=== PATIENT | male | born 1945 | race Caucasian/White ===

== ENCOUNTER 2016-08-22 01:19 | Emergency (ER) | payer MEDICARE, MEDICAID ==
[~2016-08-22] VITALS: Ht 170.2 cm; Wt 72.6 kg
[~2016-08-22 01:19] MED LIST: ATOR10TA PO; EMTR1TAB6 PO; HYDR1TAB PO; OXYC5CAP3 PO
[2016-08-22] MEDS ORDERED: LIDOCAINE 2% JEL UROJET 10 ML MM ONE ×4 (01:51→04:05)
[2016-08-22] MEDS ORDERED: IV NS 0.9% 1,000 ML BAG IV ONE (02:00)
[2016-08-22 02:17] LABS: BASOPHILS % (AUTO) 0.1 % (0.0-2.0); EOSINOPHILS # (AUTO) 0.1 /CMM (0.0-0.7); HEMATOCRIT 46 % (39-51); HEMOGLOBIN 15.6 g/dL (13.5-17.5); LYMPHOCYTES # (AUTO) 3.6 /CMM (0.8-4.8); LYMPHOCYTES % (AUTO) 35.7 % (20.0-44.0); MEAN CORPUSCULAR HEMOGLOBIN 32 PG (26.0-33.0); MEAN CORPUSCULAR HGB CONC 34 g/dl (31.0-36.0); MEAN CORPUSCULAR VOLUME 94 fL (80-96); MONOCYTES # (AUTO) 0.6 /CMM (0.1-1.30); MONOCYTES % (AUTO) 6.2 % (2.0-12.0); NEUTROPHILS # (AUTO) 5.8 /CMM (1.8-8.9); PLATELET COUNT (AUTO) 195 /CMM (150-450); RDW COEFFICIENT OF VARIATION 12.6 (11.5-15.0); RED BLOOD CELL COUNT(AUTO) 4.94 MIL/uL (4.5-6.0); WHITE BLOOD COUNT (AUTO) 10.2 K/uL (4.3-11.0)
[2016-08-22 02:28] LABS: CALCIUM, SERUM 7.6 mg/dL (8.5-10.1); CARBON DIOXIDE 34 mmol/L (21-32); CHLORIDE 104 mmol/L (98-107); CREATININE 0.8 mg/dL (0.6-1.3); GLUCOSE 113 mg/dL (74-106); POTASSIUM 3.8 mmol/L (3.5-5.1); SODIUM SERUM 142 mmol/L (136-145); UREA NITROGEN, BLOOD 12 mg/dL (7-18)
[2016-08-22 02:35] LABS: ALANINE AMINOTRANSFERASE 31 U/L (12-78); ALBUMIN 3.7 g/dL (3.4-5.0); ALKALINE PHOSPHATASE 111 U/L (46-116); BILIRUBIN,DIRECT 0.1 mg/dL (0.0-0.2); BILIRUBIN,TOTAL 0.4 mg/dL (0.2-1.0); LIPASE 155 U/L (73-393); TOTAL PROTEIN, SERUM 7.8 g/dL (6.4-8.2)
[2016-08-22 02:36] LABS: TROPONIN I < 0.017 ng/mL (0.00-0.056)
[2016-08-22 02:40] LABS: INR 0.96 (0.87-1.13); PROTHROMBIN TIME 10.2 SECS (9.5-12.7)
[2016-08-22] MEDS ORDERED: IV NS 0.9% 1,000 ML ONE (02:49)
[2016-08-22] MEDS ORDERED: IV SET PRIMARY 1 EA INFUS.SET MC ONE (02:49)
[2016-08-22 02:58] LABS: ASPARTATE AMINOTRANSFERASE 27 U/L (15-37)
[2016-08-22] MEDS ORDERED: CEPHALEXIN MONOHYDRATE 500 MG CAPSULE PO ONE ×2 (04:00→04:04)
[2016-08-22 04:15] VITALS: BP 136/93
== END 2016-08-22 04:18 | disposition home or self-care (01) ==
LOC: ER 01:20
DX: N21.0 Calculus in bladder (principal); R31.0 Gross hematuria; R33.9 Retention of urine, unspecified; R10.9 Unspecified abdominal pain; G62.9 Polyneuropathy, unspecified; E03.9 Hypothyroidism, unspecified; Z90.89 Acquired absence of other organs; Z88.1 Allergy status to other antibiotic agents
CPT/HCPCS: 36415; 51702; 72128; 74176; 80048; 80076; 83690; 84484; 85025; 85730; 93005; 96360; 99285; A4606; J3490 ×3; J7030; Z7610

== ENCOUNTER 2016-09-10 14:57 | Emergency (ER) | payer MEDICARE, MEDICAID ==
[~2016-09-10] VITALS: Ht 170.2 cm; Wt 72.6 kg
--- NOTE | 2016-09-10 14:57 | NUR ---
[place] SINCE THIS MORNING, S/P CYSTOSCOPY 09/01/16. GOWNED PT . AWAITING MD ORDER
[2016-09-10] MEDS ORDERED: LIDOCAINE 2% JEL UROJET 10 ML MM ONE ×2 (15:24→15:30)
--- NOTE | 2016-09-10 17:24 | NUR ---
LEFT MESSAGE WITH DR JOSE CLEMENTS'S OFFICE
--- NOTE | 2016-09-10 18:11 | NUR ---
Patient discharged to home in stable condition. Written and verbal after care instructions given. Patient verbalizes understanding of instruction.
[2016-09-10 18:15] VITALS: BP 130/82
== END 2016-09-10 18:39 | disposition home or self-care (01) ==
LOC: ER 14:58
DX: R31.0 Gross hematuria (principal); R33.9 Retention of urine, unspecified; E03.9 Hypothyroidism, unspecified; G62.9 Polyneuropathy, unspecified; Z90.89 Acquired absence of other organs; Z88.8 Allergy status to other drugs, medicaments and biological substances
CPT/HCPCS: 51702; 99284; A4217 ×3; A4606; J3490; Z7610

== ENCOUNTER 2016-12-23 02:42 | Emergency (ER) | payer MEDICARE, MEDICAID ==
[~2016-12-23] VITALS: Ht 172.7 cm; Wt 68.0 kg
--- NOTE | 2016-12-23 02:50 | NUR ---
PT BIB SELF AMBULATORY TO ER BED 6. PT C/O ABD PAIN AND URINARY RETENTION X 12 HOURS. PT PLACED ON VS MONITOR. PT VSS/NAD NOTED/RESP EVEN UNLABORED/SKIN WARM AND DRY/DENIES N/V/D. PT IS AOX4.
[2016-12-23] MEDS ORDERED: LIDOCAINE 2% JEL UROJET 10 ML MM ONE ×2 (02:52→03:00)
--- NOTE | 2016-12-23 03:00 | NUR ---
16 FR F/C INSERTED, WITH NO URINE RETURN. COUDE TIP ASHLEY INSERTED UNABLE TO PASS PAST BLOCKAGE. THEN PER MD ORDERS A 22FR 3 WAY F/C INSERTED AND IRRIGATION ATTEMPTED BY BOTH NURSE AND MD, PULLED OUT APPROX 300ML OF BEATRICE CLOTTED BLOOD. PROCEDURE ABORTED 0440 DUE TO PT INABILITY TO TOLERATE PROCEDURE WITH NO CLOT OR URINE RETURN NOTED. MD DISCONTINUED. PT UROLOGIST BEING CONTACTED BY CHARGE NURSE, TRANSFER PROCEDURES INITIATED.
[2016-12-23] MEDS ORDERED: ONDANSETRON HCL/PF 4 MG/2 ML VIAL ONE (03:11)
[2016-12-23] MEDS ORDERED: MORPHINE SULFATE INJ 10 MG/ML DISP.SYRIN ONE (03:11)
[2016-12-23] MEDS ORDERED: ONDANSETRON HCL/PF 4 MG/2 ML VIAL IV ONE (03:30)
[2016-12-23] MEDS ORDERED: MORPHINE SULFATE INJ 2 MG/ML DISP.SYRIN IV ONE (03:30)
[2016-12-23] MEDS ORDERED: HYDROMORPHONE INJ 2 MG/ML DISP.SYRIN ONE ×2 (03:42→05:25)
[2016-12-23] MEDS: HYDROMORPHONE 1 MG/1 ML DISP.SYRIN IV ONE ×2 (03:48→03:49)
[2016-12-23] MEDS ORDERED: HYDROMORPHONE INJ 2 MG/ML DISP.SYRIN IV ONE (04:00)
--- NOTE | 2016-12-23 04:41 | NUR ---
CALLED [facility]OLOG[facility] AND LEFT A MESSAGE [phone]
--- NOTE | 2016-12-23 04:51 | NUR ---
CALLED [facility] AND TALKED WITH PRISCILLA THEY STATE FOR [facility] TRANSFERS AT THIS TIME THEY ONLY DO OB AND PEDS
--- NOTE | 2016-12-23 04:59 | NUR ---
[facility] CALLED AND TALKED TO MIRNA SHE STATES THEY DO NOT HAVE UROLOGY
--- NOTE | 2016-12-23 05:02 | NUR ---
CALLED [facility] TRANSFER [facility] THEY STATE NONE OF THEIR HOSPITALS HAVE UROLOGY AT THIS TIME
--- NOTE | 2016-12-23 05:04 | NUR ---
CALLED [facility] AND THEY STATE THEY DO NOT HAVE UROLOGY
[2016-12-23] MEDS ORDERED: HYDROMORPHONE 1 MG/1 ML DISP.SYRIN IV ONE (05:30)
--- NOTE | 2016-12-23 05:55 | NUR ---
IV removed. Catheter intact and site benign. Pressure and 4x4 applied to site. No bleeding noted. Patient does not wish to proceed with medical care recommended by Dr. Shelton. Patient given information related to possible complications, up to and including , which could occur as a result of leaving the hospital at this time. Patient verbalizes understanding of risks involved due to leaving against medical advice. Patient has signed AMA form. Pt picked up by Rakesh (friend) to be transported by pov to [facility] to be seen by his specialist. Pt ambulatory with a steady gait, instructed not to drive.
[2016-12-23 06:12] VITALS: BP 172/93
== END 2016-12-23 06:13 | disposition left against medical advice (07) ==
LOC: ER 02:45
DX: R33.9 Retention of urine, unspecified (principal); R31.0 Gross hematuria; E03.9 Hypothyroidism, unspecified; I10 Essential (primary) hypertension; C67.9 Malignant neoplasm of bladder, unspecified; Z98.890 Other specified postprocedural states; Z88.1 Allergy status to other antibiotic agents
CPT/HCPCS: 51702; 96374; 96375; 96376; 99284; A4606; J1170 ×2; J2270; J2405; J3490; A4217; Z7610

== ENCOUNTER 2016-12-29 19:19 | Emergency (ER) | payer MEDICARE, MEDICAID ==
[~2016-12-29] VITALS: Ht 172.7 cm; Wt 69.9 kg
--- NOTE | 2016-12-29 20:38 | NUR ---
PT AMBULATORY TO ER BED 7, PT C/O F/C LEAKING SINCE THIS AFTERNOON. PT VSS/RESP EVEN UNLABORED/NAD NOTED/PT AOX4. AWAITING MD HAINES.
--- NOTE | 2016-12-29 20:50 | NUR ---
F/C REMOVED PER MD ORDERS.
--- NOTE | 2016-12-29 21:00 | NUR ---
PT URINATED 100ML CLEAR, YELLOW URINE. MADE AWARE.
--- NOTE | 2016-12-29 21:09 | NUR ---
Patient discharged to home in stable condition. Written and verbal after care instructions given. Patient verbalizes understanding of instruction. Pt ambulatory with a steady gait.
[2016-12-29 21:11] VITALS: BP 124/79
== END 2016-12-29 21:21 | disposition home or self-care (01) ==
LOC: ER 19:21
DX: R33.9 Retention of urine, unspecified (principal); Z46.6 Encounter for fitting and adjustment of urinary device; E03.9 Hypothyroidism, unspecified; G62.9 Polyneuropathy, unspecified; F10.10 Alcohol abuse, uncomplicated; Z85.51 Personal history of malignant neoplasm of bladder; Z90.89 Acquired absence of other organs; Z88.1 Allergy status to other antibiotic agents
CPT/HCPCS: 99281; A4606; Z7502; Z7610